=== PATIENT | male | born 1955 | race Caucasian/White ===

== ENCOUNTER 2020-09-23 22:20 | Observation (INO) | payer OTHER ==
[~2020-09-23] VITALS: Ht 185.4 cm; Wt 110.2 kg
[2020-09-23 23:03] LABS: BASO % 0 % (0-3); EOS # 0.2 x10^3/uL (0.0-0.7); EOS % 3 % (0-3); HEMATOCRIT 32.9 % (39.0-53.0); HEMOGLOBIN 11.6 g/dL (13.0-17.5); LYMPH # 0.5 x10^3/uL (1.0-4.8); LYMPH % 10 % (24-48); MEAN CORPUSCULAR HEMOGLOBIN 34 pg (25-35); MEAN CORPUSCULAR HGB CONC 35 g/dL (31-37); MEAN CORPUSCULAR VOLUME 96 fL (79-100); MONO # 0.6 x10^3/uL (0.0-1.1); MONO % 13 % (0-9); NEUT # 3.7 x10^3/uL (1.8-7.7); NEUT % 73 % (31-73); PLATELET COUNT 76 x10^3/uL (140-400); RED BLOOD COUNT 3.43 x10^6/uL (4.30-5.70)
[2020-09-23 23:16] LABS: CALCIUM 8.7 mg/dL (8.5-10.1); CREATININE 1.3 mg/dL (0.7-1.3); GFR 55.6; POTASSIUM 3.5 mmol/L (3.5-5.1)
[2020-09-23 23:22] LABS: TOTAL BILIRUBIN 0.3 mg/dL (0.2-1.0); TOTAL PROTEIN 6.1 g/dL (6.4-8.2)
--- NOTE | 2020-09-23 23:26 | RAD ---
INDICATION: Reason: chest pain / Spl. Instructions: / History: COMPARISON: None FINDINGS: Single view of chest obtained. Enlarged cardiomediastinal silhouette likely exaggerated by portable technique. Right-sided port with tip at the SVC. Limited assessment of the left lung base secondary to overlying structures obscuring . There are some linear opacities at the lower lungs. IMPRESSION: * Mild linear opacities at the lower lungs which could be from atelectasis but early infiltrate is a lso within the differential. Electronically signed by: Rm Sullivan MD (09/23/2020 11:23 PM) [id number]
--- NOTE | 2020-09-23 23:43 | PHYS DOC ---
Past Medical History Past Medical History: Cancer, High Cholesterol, Hypothyroid Additional Past Medical Histor: AORTIC ANEURYSM, RECTAL CA, A. FLUTTER Past Surgical History: Other Additional Past Surgical Histo: PORT R. CHEST, BACK, NECK Smoking Status: Current Every Day Smoker Alcohol Use: None General Adult EDM: Chief Complaint: CHEST PAIN HPI: HPI: Patient is a 64 year old male who presented to ER for evaluation of substernal chest pain associated with trouble breathing started a few hours ago. Patient has rectal cancer, he is currently under chemo radiation treatment at [facility]. Patient denies any cough or fever. Patient also has trouble breathing earlier. Patient had chronic cough, he was tested negative for COVID- 19 2 weeks ago. Patient was diagnosed recently with atrial fibrillation, he is on Eliquis and metoprolol. Review of Systems: Review of Systems: Constitutional: Denies fever or chills. [] Eyes: Denies change in visual acuity. [] HENT: Denies nasal congestion or sore throat. [] Respiratory: POSTIVE FOR cough, positive for shortness of air. [] Cardiovascular: Positive for chest pain, no edema GI: Denies abdominal pain, nausea, vomiting, bloody stools or diarrhea. [] : Denies dysuria. [] Musculoskeletal: Denies back pain or joint pain. [] Integument: Denies rash. [] Neurologic: Denies headache, focal weakness or sensory changes. [] Endocrine: Denies polyuria or polydipsia. [] Lymphatic: Denies swollen glands. [] Psychiatric: Denies depression or anxiety. [] Heart Score: HEART Score for Chest Pain: HEART Score for Chest Pain Response (Comments) Value History Moderately Suspicious 1 ECG Nonspecific Repolarizatio 1 Age >45 - < 65 1 Risk Factors 1 or 2 Risk Factors 1 Troponin < Normal Limit 0 Total 4 Risk Factors: Risk Factors: DM, Current or recent (<one month) smoker, HTN, HLP, family history of CAD, obesity. Risk Scores: Score 0 - 3: 2.5% MACE over next 6 weeks - Discharge Home Score 4 - 6: 20.3% MACE over next 6 weeks - Admit for Clinical Observation Score 7 - 10: 72.7% MACE over next 6 weeks - Early Invasive Strategies Current Medications: Current Medications Medications (Trade) Dose Ordered Sig/Lilliam Start Time Stop Time Status Last Admin Dose Admin Iohexol (Omnipaque 350 Mg/ml) 90 ml 1X ONCE 09/23/20 23:45 09/23/20 23:46 UNV Allergies: Allergies: Allergies Coded Allergies Type Severity Reaction Last Updated Verified No Known Drug Allergies 09/23/20 No Physical Exam: PE: Constitutional: Well developed, well nourished, no acute distress, non-toxic appearance. [] HENT: Normocephalic, atraumatic, bilateral external ears normal, oropharynx mo ist, no oral exudates, nose normal. [] Eyes: PERRLA, EOMI, conjunctiva normal, no discharge. [] Neck: Normal range of motion, no tenderness, supple, no stridor. [] Cardiovascular:Heart rate regular rhythm, no murmur [] Lungs & Thorax: Bilateral breath sounds clear to auscultation [] Abdomen: Bowel sounds normal, soft, no tenderness, no masses, no pulsatile masses. [] Skin: Warm, dry, no erythema, no rash. [] Back: No tenderness, no CVA tenderness. [] Extremities: No tenderness, no cyanosis, no clubbing, ROM intact, no edema. [] Neurologic: Alert and oriented X 3, normal motor function, normal sensory function, no focal deficits noted. [] Psychologic: Affect normal, judgement normal, mood normal. [] Current Patient Data: Labs: Laboratory Tests Test 09/23/20 22:50 White Blood Count 5.0 x10^3/uL (4.0-11.0) Red Blood Count 3.43 x10^6/uL (4.30-5.70) L Hemoglobin 11.6 g/dL (13.0-17.5) L Hematocrit 32.9 % (39.0-53.0) L Mean Corpuscular Volume 96 fL (79-100) Mean Corpuscular Hemoglobin 34 pg (25-35) Mean Corpuscular Hemoglobin Concent 35 g/dL (31-37) Red Cell Distribution Width 13.0 % (11.5-14.5) Platelet Count 76 x10^3/uL (140-400) L Neutrophils (%) (Auto) 73 % (31-73) Lymphocytes (%) (Auto) 10 % (24-48) L Monocytes (%) (Auto) 13 % (0-9) H Eosinophils (%) (Auto) 3 % (0-3) Basophils (%) (Auto) 0 % (0-3) Neutrophils # (Auto) 3.7 x10^3/uL (1.8-7.7) Lymphocytes # (Auto) 0.5 x10^3/uL (1.0-4.8) L Monocytes # (Auto) 0.6 x10^3/uL (0.0-1.1) Eosinophils # (Auto) 0.2 x10^3/uL (0.0-0.7) Basophils # (Auto) 0.0 x10^3/uL (0.0-0.2) Sodium Level 137 mmol/L (136-145) Potassium Level 3.5 mmol/L (3.5-5.1) Chloride Level 102 mmol/L (98-107) Carbon Dioxide Level 27 mmol/L (21-32) Anion Gap 8 (6-14) Blood Urea Nitrogen 13 mg/dL (8-26) Creatinine 1.3 mg/dL (0.7-1.3) Estimated GFR (Cockcroft-Gault) 55.6 BUN/Creatinine Ratio 10 (6-20) Glucose Level 132 mg/dL (70-99) H Calcium Level 8.7 mg/dL (8.5-10.1) Total Bilirubin 0.3 mg/dL (0.2-1.0) Aspartate Amino Transferase (AST) 14 U/L (15-37) L Alanine Aminotransferase (ALT) 16 U/L (16-63) Alkaline Phosphatase 95 U/L (46-116) Troponin I Quantitative 0.022 ng/mL (0.000-0.055) RN-Hpg-S-Type Natriuretic Peptide 919 pg/mL (0-124) H Total Protein 6.1 g/dL (6.4-8.2) L Albumin 3.0 g/dL (3.4-5.0) L Albumin/Globulin Ratio 1.0 (1.0-1.7) Lipase 28 U/L (73-393) L Laboratory Tests 09/23/20 22:50 Laboratory Tests 09/23/20 22:50 Vital Signs: Vital Signs Date Time Temp Pulse Resp B/P (MAP) Pulse Ox O2 Delivery O2 Flow Rate FiO2 09/23/20 23:03 98.7 59 20 139/72 (94) 99 Room Air 98.7 EKG: EKG: EKG was done at 2232, heart rate 138 bpm, atrial fibrillation with RVR, no ST segment elevation Radiology/Procedures: Radiology/Procedures: [facility] [address] [place] [address] IMAGING REPORT Signed PATIENT: NAVIN NAILS ACCOUNT: [id number] : 1955 LOCATION: ER AGE: 64 SEX: M EXAM STATUS: REG ER ORD. PHYSICIAN: MIGUEL NELSON DO REASON: CHEST PAIN, SHORTNESS OF AIR, RECTAL CANCER PROCEDURE: CT ANGIOGRAPHY CHEST INDICATION: Reason: CHEST PAIN, SHORTNESS OF AIR, RECTAL CANCER / Spl. Instructions: [id number] 90ML / History: COMPARISON: August 22, 2020 PET/CT TECHNIQUE: Axial CT images obtained through the chest. Intravenous contrast utilized. Angiogram 3D images processed per protocol. One or more of the following individualized dose reduction techniques were utilized for this examination: 1. Automated exposure control; 2. Adjustment of the mA and/or kV according to patient size; 3. Use of iterative reconstruction technique. FINDINGS: Cystic changes at lung apices. Trace pleural effusion. Mild peripheral reticulation which is likely chronic in nature. Mild probable basilar atelectasis. Enlarged lymph nodes in mediastinum. For example subcarinal region measuring up to 15 mm short axis. Right-sided port is seen. Degenerative changes the spine. Epidural leads was then central canal. No thoracic aortic aneurysm. Coronary artery calcific atherosclerosis. No central pulmonary embolus. Hilar lymphadenopathy. IMPRESSION: No central pulmonary embolus. There is some prominent lymph nodes within the mediastinum and hilum again seen. Trace bilateral pleural effusions with mild adjacent airspace consolidation. There is also some mild interstitial thickening at the lung bases which could be from mild pulmonary vascular congestion or interstitial infiltrate. Electronically signed by: Morelia Berger MD (09/24/2020 12:38 AM) DESKTOP- [id number] DICTATED and SIGNED BY: MORELIA BERGER MD DATE: 09/24/20 [id number] 0 Course & Med Decision Making: Course & Med Decision Making Pertinent Labs and Imaging studies reviewed. (See chart for details) Patient is a 64-year-old male who presented with chest pain and trouble breathing, CT scan did not show evidence of PE. Patient said the pain disappeared, cardiac enzymes normal so far. Patient will be admitted to hospital for further evaluation and treatment Dragon Disclaimer: Dragon Disclaimer: This electronic medical record was generated, in whole or in part, using a voice recognition dictation system. Departure Departure Impression: Primary Impression: Chest pain Disposition: ADMITTED INPT THIS HOSP Admitting Physician: RILEY (DR. COLLAZO) Condition: STABLE Referrals: NO PCP (PCP) MIGUEL NELSON DO Sep 23, 2020 23:43
[2020-09-23] MEDS ORDERED: CONTRAST GIVEN. MC PRN (23:45)
[2020-09-23] MEDS ORDERED: IOHEXOL 350 MG/ML 100 ML VIAL. IV ONE (23:45)
[2020-09-24] MEDS ORDERED: IV NORMAL SALINE 1000ML BAG 1,000 ML IV ONE
--- NOTE | 2020-09-24 00:40 | RAD ---
INDICATION: Reason: CHEST PAIN, SHORTNESS OF AIR, RECTAL CANCER / Spl. Instructions: [id number] 90ML / History: COMPARISON: August 22, 2020 PET/CT TECHNIQUE: Axial CT images obtained through the chest. Intravenous contrast utilized. Angiogram 3D images proce ssed per protocol. One or more of the following individualized dose reduction techniques were utilized for this examinat ion: 1. Automated exposure control; 2. Adjustment of the mA and/or kV according to patient size; 3 . Use of iterative reconstruction technique. FINDINGS: Cystic changes at lung apices. Trace pleural effusion. Mild peripheral reticulation which is likely chronic in nature. Mild probable basilar atelectasis. Enlarged lymph nodes in mediastinum. For example subcarinal region measuring up to 15 mm short axis. Right-sided port is seen. Degenerative changes the spine. Epidural leads was then central canal. No thoracic aortic aneurysm. Coronary artery calcific atherosc lerosis. No central pulmonary embolus. Hilar lymphadenopathy. IMPRESSION: No central pulmonary embolus. There is some prominent lymph nodes within the mediastinum and hilum again seen. Trace bilateral pleural effusions with mild adjacent airspace consolidation. There is also some mild interstitial thickening at the lung bases which could be from mild pulmonary vascular congestion or i nterstitial infiltrate. Electronically signed by: Rm Sullivan MD (09/24/2020 12:38 AM) [id number]
[2020-09-24] MEDS ORDERED: ONDANSETRON PF 4 MG/2 ML VIAL. IV PRN (01:15)
--- NOTE | 2020-09-24 08:05 | EKG ---
[facility] [address] [place] [address] Test Date: 2020-09-23 Test Time: 22:32:20 Pat Name: NAVIN NAILS Department: Room: Gender: M Nurse Prn: : 1955 Requested By: MIGUEL NELSON Order Number: [id number] Reading MD: Measurements Intervals [place] Rate: 128 P: ND: QRS: 25 QRSD: 70 T: -11 QT: 298 QTc: 438 Interpretive Statements IRREGULAR RHYTHM, NO P-WAVE FOUND LOW VOLTAGE T ABNORMALITY IN ANTERIOR LEADS INFEROLATERAL LEADS ABNORMAL ECG RI6.01 No previous ECG available for comparison
[2020-09-24] MEDS ORDERED: LEVO137T44 PO (08:34)
[2020-09-24] MEDS ORDERED: TAMS0.4C97 PO (08:37)
[2020-09-24] MEDS ORDERED: SIMV40TA18 PO (08:38)
--- NOTE | 2020-09-24 08:39 | HP ---
ADMIT DATE: 09/24/2020 CHIEF COMPLAINT: Chest pain. HISTORY OF PRESENT ILLNESS: The patient is a pleasant middle-aged male who has anal cancer. He is currently undergoing a radiation and chemo, now he has chest pain. He does have a history of aortic aneurysm. He has hyperlipidemia. I discussed the case with ER physician. We are going to admit the patient and consult Cardiology. PAST MEDICAL HISTORY: Tobacco abuse, aortic aneurysm, rectal cancer, chemotherapy, radiation therapy, A flutter, hyperlipidemia, hypothyroid, back surgery, neck surgery, right chest port. ALLERGIES: None. FAMILY HISTORY: Hypertension. SOCIAL HISTORY: He smokes. No drink or drugs. He is . His is present. She seems to be good support for him. MEDICATIONS: Reviewed, please refer to the MRAD. REVIEW OF SYSTEMS: GENERAL: No history of weight change, weakness or fevers. SKIN: No bruising, hair changes or rashes. EYES: No blurred, double or loss of vision. NOSE AND THROAT: No history of nosebleeds, hoarseness or sore throat. CARDIAC: He complains of chest pain. LUNGS: Denies cough, hemoptysis, wheezing or shortness of breath. GASTROINTESTINAL: Denies changes in appetite, nausea, vomiting, diarrhea or constipation. GENITOURINARY: No history of frequency, urgency, hesitancy or nocturia. NEUROLOGIC: Denies history of numbness, tingling, tremor or weakness. PSYCHIATRIC: No history of panic, anxiety or depression. ENDOCRINE: No history of heat or cold intolerance, polyuria or polydipsia. EXTREMITIES: Denies muscle weakness, joint pain, pain on walking or stiffness. PHYSICAL EXAMINATION: VITALS: Within normal limits and are stable. GENERAL: No apparent distress. Alert and oriented. HEENT: Normal cephalic atraumatic, external auditory canals are patent EYES: Extraocular muscles are intact, pupils are equally round and reactive to light and accommodation MUSCULOSKELETAL: Well developed, well nourished, good range of motion ENDOCRINE: No thyromegaly was palpated LYMPHATICS: No cervical chain or axillary nodes were noted HEMATOPOIETIC: No bruising NECK: Supple, no JVD, no thyromegaly was noted. LUNGS: Clear to auscultation in all lung jean baptiste without rhonchi or wheezing. HEART: RRR, S1, S2 present. Peripheral pulses intact, no obvious murmurs were noted. ABDOMEN: Soft, nontender. Positive bowel sounds no organomegaly, normal bowel sounds. EXTREMITIES: Without any cyanosis, clubbing, or edema. Pedal pulses intact, Homans sign is negative. NEUROLOGIC: Normal speech, normal tone. A and O x 3, moves all extremities, no obvious focal deficits. PSYCHIATRIC: Normal affect, normal mood. Stable. SKIN: No ulcerations or rashes, good skin turgor, no jaundice. VASCULAR: Good capillary refill, neurovascular bundle appears to be intact. ASSESSMENT AND PLAN: Chest pain, rule out coronary artery disease. The patient will be admitted. We will check serial enzymes, serial EKGs. Consult Cardiology. Home meds, deep venous thrombosis prophylaxis. Full code. Rule out coronavirus. CAMILO COLLAZO DO DR: NAHUM/marisela JOB#: [id number] / [id number]
[2020-09-24] MEDS ORDERED: APIX5TAB PO (08:44)
[2020-09-24] MEDS ORDERED: METO50TA6 PO (08:45)
[2020-09-24] MEDS ORDERED: OXYC20TA34 PO (08:46)
[2020-09-24] MEDS ORDERED: OXYC20TA PO (08:48)
[2020-09-24] MEDS ORDERED: PROC10TA57 PO (08:49)
[2020-09-24] MEDS ORDERED: CAPE500T PO (08:52)
[2020-09-24] MEDS ORDERED: PHEN95TA27 PO (08:53)
--- NOTE | 2020-09-24 09:47 | PDOC2 ---
ROSMERY JAMES ZINC CHLORIDE OPERATOR 09/24/20 0947: CARDIAC CONSULT DATE OF CONSULT Date of Consult DATE: 09/24/20 TIME: 09:41 REASON FOR CONSULT Reason for Consult: Chest pain REFERRING PHYSICIAN Referring Physician: Dr. Saucedo SOURCE Source: Chart review, Patient HISTORY OF PRESENT ILLNESS HISTORY OF PRESENT ILLNESS This is a 64 yo male, with a history of rectal cancer currently undergoing chemo and radiation treatment at [facility] and AFIB, who presented secondary to chest pain and shortness of breath. Patient reports tightness in his central chest. Feels difficult to breath. Has difficulty taking a deep breath. Tightness is non-radiating. No dizziness, diaphoresis, palpitations, or nausea/vomiting. Does have some mild LE edema. Rectal CA is recently diagnosed. Is on week 3 of chemo, radiation therapy. Was diagnosed with AFIB last week. Saw Dr. Mendoza who initiated him on metoprolol on Elquis. Had echocardiogram conducted in his office, which the patient reports as "normal". No recent stress test. PAST MEDICAL HISTORY Cardiovascular: AFIB, HTN, Hyperlipidemia GI: Other (rectal cancer, currently undergoing chemo/radiation treatment ) Endocrine: Hypothyroidism PAST SURGICAL HISTORY Past Surgical History: No pertinent history FAMILY HISTORY Family History: Hypertension SOCIAL HISTORY Smoke: No ALCOHOL: none Drugs: None Lives: with Family CURRENT MEDICATIONS CURRENT MEDICATIONS Current Medications Medications (Trade) Dose Ordered Sig/Lilliam Route PRN Reason Start Time Stop Time Status Last Admin Dose Admin Iohexol (Omnipaque 350 Mg/ml) 90 ml 1X ONCE IV 09/23/20 23:45 09/23/20 23:47 DC 09/23/20 23:55 Sodium Chloride 1,000 ml @ 1,000 mls/hr 1X ONCE IV 09/24/20 00:00 09/24/20 00:59 DC 09/24/20 00:13 ALLERGIES ALLERGIES: Coded Allergies: No Known Drug Allergies (Unverified , 09/23/20) ROS Review of System 14 point ROS conducted with pertinent positives noted above in HPI PHYSICAL EXAM General: Alert, Oriented X3, Cooperative, No acute distress HEENT: Atraumatic Lungs: Other (diminished ) Heart: Regular rate Abdomen: Soft, No tenderness Extremities: Other (trace bilateral LE edema ) Skin: No significant lesion Neuro: Normal speech, Sensation intact, Cranial nerves 3-12 NL Psych/Mental Status: Mental status NL, Mood NL MUSCULOSKELETAL: Osteoarthritic changes both hands VITALS/I&O VITALS/I&O: Vital Signs Date Time Temp Pulse Resp B/P (MAP) Pulse Ox O2 Delivery O2 Flow Rate FiO2 09/24/20 05:48 54 18 125/67 (86) 96 Room Air 09/23/20 23:03 98.7 98.7 LABS Lab: Laboratory Tests Test 09/23/20 22:50 09/24/20 02:30 09/24/20 05:27 White Blood Count 5.0 x10^3/uL (4.0-11.0) Red Blood Count 3.43 x10^6/uL (4.30-5.70) L Hemoglobin 11.6 g/dL (13.0-17.5) L Hematocrit 32.9 % (39.0-53.0) L Mean Corpuscular Volume 96 fL (79-100) Mean Corpuscular Hemoglobin 34 pg (25-35) Mean Corpuscular Hemoglobin Concent 35 g/dL (31-37) Red Cell Distribution Width 13.0 % (11.5-14.5) Platelet Count 76 x10^3/uL (140-400) L Neutrophils (%) (Auto) 73 % (31-73) Lymphocytes (%) (Auto) 10 % (24-48) L Monocytes (%) (Auto) 13 % (0-9) H Eosinophils (%) (Auto) 3 % (0-3) Basophils (%) (Auto) 0 % (0-3) Neutrophils # (Auto) 3.7 x10^3/uL (1.8-7.7) Lymphocytes # (Auto) 0.5 x10^3/uL (1.0-4.8) L Monocytes # (Auto) 0.6 x10^3/uL (0.0-1.1) Eosinophils # (Auto) 0.2 x10^3/uL (0.0-0.7) Basophils # (Auto) 0.0 x10^3/uL (0.0-0.2) Sodium Level 137 mmol/L (136-145) Potassium Level 3.5 mmol/L (3.5-5.1) Chloride Level 102 mmol/L (98-107) Carbon Dioxide Level 27 mmol/L (21-32) Anion Gap 8 (6-14) Blood Urea Nitrogen 13 mg/dL (8-26) Creatinine 1.3 mg/dL (0.7-1.3) Estimated GFR (Cockcroft-Gault) 55.6 BUN/Creatinine Ratio 10 (6-20) Glucose Level 132 mg/dL (70-99) H Calcium Level 8.7 mg/dL (8.5-10.1) Total Bilirubin 0.3 mg/dL (0.2-1.0) Aspartate Amino Transferase (AST) 14 U/L (15-37) L Alanine Aminotransferase (ALT) 16 U/L (16-63) Alkaline Phosphatase 95 U/L (46-116) Troponin I Quantitative 0.022 ng/mL (0.000-0.055) 0.022 ng/mL (0.000-0.055) < 0.017 ng/mL (0.000-0.055) YP-Qbn-U-Type Natriuretic Peptide 919 pg/mL (0-124) H Total Protein 6.1 g/dL (6.4-8.2) L Albumin 3.0 g/dL (3.4-5.0) L Albumin/Globulin Ratio 1.0 (1.0-1.7) Lipase 28 U/L (73-393) L Laboratory Tests 09/23/20 22:50 Laboratory Tests 09/23/20 22:50 ASSESSMENT/PLAN ASSESSMENT/PLAN 1. Chest pain, atypical; AMI ruled out. 2. Acute diastolic CHF; reports recent echo that was "normal" 3. PAFIB; presently SR. . Recently began following with Dr. Mendoza 4. Rectal CA; started on chemo/radiation 3 wks ago 5. Hyperlipidemia 6. Hypertension controlled 7. Hypothyroidism; on replacement Recommendations ASA, statin Lipids IV diuresis with monitoring of labs Metoprolol for rate control On Eliquis for stroke prophylaxis Outpatient ischemic evaluation Consider COVID r/o LUIS EATON MD 09/25/20 0355: CARDIAC CONSULT ASSESSMENT/PLAN ASSESSMENT/PLAN Late entry for 09/24/2020 PT. seen and examined. Agree with above SCOURING TRAIN OPERATOR note. Mr. Castle presents with worsening exertional dyspnea now requiring supplemental O2. Therefore, a rapid covid was sent and this was negative. Clinically he does not appear to be in overt heart failure (only trace LE edema) He has not had any high BP or RVR since admission and he has not had significant urine output with lasix either so this does not appear to be related to these un derlying issues. His CT scan is negative for p.e. Etiology of dyspnea is a bit unclear but we will await records from his molding machine setter for his most recent echo. ROSMERY JAMES APRN Sep 24, 2020 09:47 LUIS EATON MD Sep 25, 2020 03:55
[2020-09-24] MEDS: LEVOTHYROXINE 137 MCG TABLET PO SCH (10:50)
[2020-09-24] MEDS: APIXABAN 5 MG TABLET. PO SCH ×2 (10:51→22:34)
[2020-09-24] MEDS: oxyCODONE ER 10 MG TAB.ER.12H PO SCH ×2 (10:51→22:35)
[2020-09-24] MEDS: TAMSULOSIN 0.4 MG CAP.ER.24H. PO SCH (10:51)
[2020-09-24] MEDS: METOPROLOL TART IMMED RELEASE 50 MG TABLET. PO SCH ×2 (10:51→22:34)
[2020-09-24] MEDS: PROCHLORPERAZINE 5 MG TABLET. PO PRN (11:05)
[2020-09-24] MEDS ORDERED: FUROSEMIDE 40 MG/4 ML VIAL. IVP ONE ×2 (11:45→15:45)
[2020-09-24] MEDS ORDERED: POTASSIUM CHLORIDE 20 MEQ TABLET.ER. PO ONE ×2 (12:30→15:45)
[2020-09-24 15:00] VITALS: BP 107/61
[2020-09-24] MEDS: oxyCODONE IR 5 MG TABLET PO PRN (16:25)
[2020-09-24] MEDS ORDERED: ZOLPIDEM 5 MG TABLET. PO PRN (17:30)
[2020-09-24 19:55] VITALS: BP 116/56
[2020-09-24] MEDS ORDERED: ATORVASTATIN CALCIUM 40 MG TABLET. PO SCH (21:00)
[2020-09-24 22:40] VITALS: BP 93/45
[2020-09-25] MEDS: oxyCODONE IR 5 MG TABLET PO PRN (00:28)
[2020-09-25 02:33] VITALS: BP 98/46
[2020-09-25] MEDS: LEVOTHYROXINE 137 MCG TABLET PO SCH (06:27)
[2020-09-25 07:00] VITALS: BP 106/62
[2020-09-25 07:14] LABS: CHOLESTEROL/HDL RATIO 2.3
[2020-09-25] MEDS ORDERED: ASPIRIN ENTERIC COATED 81 MG TABLET.DR. PO SCH (08:00)
[2020-09-25] MEDS: oxyCODONE ER 10 MG TAB.ER.12H PO SCH (08:40)
[2020-09-25] MEDS: PROCHLORPERAZINE 5 MG TABLET. PO PRN (08:40)
[2020-09-25] MEDS: APIXABAN 5 MG TABLET. PO SCH (08:40)
[2020-09-25] MEDS: TAMSULOSIN 0.4 MG CAP.ER.24H. PO SCH (08:40)
[2020-09-25] MEDS: METOPROLOL TART IMMED RELEASE 50 MG TABLET. PO SCH (08:41)
[2020-09-25 10:48] VITALS: BP 110/58
--- NOTE | 2020-09-25 11:10 | PDOC ---
ROSMERY JAMES FINGER LIFT OPERATOR 09/25/20 1110: CARDIO Progress Notes Date and Time Date of Service 09/25/20 Time of Evaluation 1100 Subjective Subjective: No Chest Pain, No Palpitations, No Dizziness, Other (SOA improved, but remians slightly dyspneic ) Vitals Vitals Vital Signs Date Time Temp Pulse Resp B/P (MAP) Pulse Ox O2 Delivery O2 Flow Rate FiO2 09/25/20 10:48 98.1 59 20 110/58 (75) 97 Nasal Cannula 2.0 98.1 Weight Weight [ ] Input and Output Intake and Output Intake and Output 09/25/20 07:00 Intake Total 530 ml Output Total 1000 ml Balance -470 ml Intake Oral 530 ml Output Urine Total 1000 ml # Voids 1 Laboratory Labs Laboratory Tests Test 09/24/20 19:00 09/25/20 06:15 SARS-CoV-2 Antigen (Rapid) Negative (NEGATIVE) Triglycerides Level 139 mg/dL (0-150) Cholesterol Level 155 mg/dL (0-200) LDL Cholesterol, Calculated 59 mg/dL (0-100) VLDL Cholesterol, Calculated 28 mg/dL (0-40) Non-HDL Cholesterol Calculated 87 mg/dL (0-129) HDL Cholesterol 68 mg/dL (40-60) Cholesterol/HDL Ratio 2.3 Physical Exam HEENT: Neck Supple W Full Motion Chest: Symmetric LUNGS: Other (diminished bases) Heart: RRR Abdomen: Soft N/T Extremities: No Edema Neurology: alert, oriented, follow commands Assessment Assessment 1. Chest pain, atypical; AMI ruled out. 2. Mild acute diastolic CHF; reports recent echo that was "normal". Dyspnea improved with diuresis 3. PAFIB; presently SR. . Recently began following with Dr. Mendoza 4. Rectal CA; started on chemo/radiation 3 wks ago 5. Hyperlipidemia 6. Hypertension controlled 7. Hypothyroidism; on replacement 8. PUI; Rapid negative, PCR pending 9. Tobaccoism; discussed/encouraged cessation Recommendations ASA, statin Obtain recent echo from Dr. Mendoza Metoprolol for rate control On Eliquis for stroke prophylaxis Outpatient ischemic evaluation Supportive care Justicifation of Admission Dx: Justifications for Admission: Justification of Admission Dx: Yes Comments: acute CHF LUIS EATON MD 09/26/20 0848: CARDIO Progress Notes Plan Plan Late entry for 09/25/2020 Patient seen and examined. He reports improved symptoms. Agree with above nurse practitioner note. Supportive care. Okay to follow-up with his primary hides and skins colorer. No further cardiac testing necessary. ROSMERY JAMES APRN Sep 25, 2020 11:10 LUIS EATON MD Sep 26, 2020 08:48
--- NOTE | 2020-09-25 11:39 | NUR ---
SS following for discharge planning. SS reviewed pt chart and discussed with pt RN. Pt is from home with spouse and is currently on room air. COVID19 negative on rapid. Cardiology following. Discharge plan is to home when medically ready. SS will continue to follow for discharge planning.
--- NOTE | 2020-09-25 12:23 | DISCH ---
DISCHARGE INSTRUCTIONS Condition on Discharge Condition on Discharge: Guarded Activity After Discharge Activity Instructions for Disc: Activity as tolerated Diet after Discharge Diet after Discharge: Cardiac Contacting the DRTeodoro after DC Call your doctor for: If your condition worsens Follow-Up Follow up with: PCP within 2 weeks of discharge Follow Up With: Cardiology as needed, MANJINDER Gleason MD Sep 25, 2020 12:23
[2020-09-25] MEDS ORDERED: POTASSIUM CHLORIDE 20 MEQ TABLET.ER. PO ONE (13:00)
[2020-09-25] MEDS ORDERED: FUROSEMIDE 40 MG/4 ML VIAL. IVP ONE (13:00)
[2020-09-25] MEDS ORDERED: HEPARIN PF 500 UNIT/5 ML DISP.SYRIN. IVP ONE (14:30)
[2020-09-25 15:00] VITALS: BP 103/58
[2020-09-25] MEDS ORDERED: ANTI-COAG MONITOR BY PHARMACY. MC PRN (16:30)
--- NOTE | 2020-09-25 18:00 | NUR ---
Discharge Note: NATALIE NAILS Discharge instructions and discharge home medications reviewed with Patient and and a copy given. All questions have been answered and understanding verbalized. The following instructions and handouts were given: information about medications, follow up appointments, chest pain, etc. Discontinued lines and drains: port-a-cath in right chest de-accessed. Patient discharged to home with self care with , patient ambulated to discharge vehicle.
--- NOTE | 2020-09-28 22:02 | PDOC3 ---
[facility]-Discharge Summary Date of Admission: Date of Admission: Sep 24, 2020 Date of Discharge: Date of Discharge: Sep 25, 2020 Discharge Diagnosis: Discharge Diagnosis: 1. Chest pain, atypical; AMI ruled out. 2. Acute diastolic CHF; reports recent echo that was "normal" 3. PAFIB; presently SR. . Recently began following with Dr. Mendoza 4. Rectal CA; started on chemo/radiation 3 wks ago 5. Hyperlipidemia 6. Hypertension controlled 7. Hypothyroidism; on replacement Hospital Course: Hospital Course: The patient is a pleasant middle-aged male who has anal cancer. He is currently undergoing a radiation and chemo, now he has chest pain. He does have a history of aortic aneurysm. He has hyperlipidemia. I discussed the case with ER physician. We are going to admit the patient and consult Cardiology. Echo was reviewed and all his risk factors for chest pain was reviewed with him. There are no obvious reasons for his chest pain or his LE edema. He was chest pain free on the day of his discharge. Rest of hospital course was uneventful. Disposition: Disposition/Orders: D/C to Home Activity: Activity: Resume previous activity Diet: Diet: Cardiac Medications: Home Meds Reported Medications Phenazopyridine Hcl (AZO STANDARD) 95 Mg Tablet, 1 TAB PO BID for 3 Days, #6 TAB 0 Refills 09/24/20 Capecitabine (XELODA) 500 Mg Tablet, 2000 MG PO BID, TAB 09/24/20 Prochlorperazine Maleate (Compazine) 10 Mg Tablet, 1 TAB PO Q4-6HRS PRN for NAUSEA for 30 Days, TAB 0 Refills 09/24/20 Oxycodone Hcl (OXYCODONE HCL) 20 Mg Tablet, 0.5 TAB PO QIDPRN PRN for pain MDD 4 Tablet(s) for 5 Days, #20 TAB 0 Refills 09/24/20 Oxycodone Hcl (OXYCONTIN) 20 Mg Tab.er.12h, 1 TAB PO BID for pain MDD 2 Tablet(s) for 30 Days, #60 TAB 0 Refills 09/24/20 Metoprolol Tartrate (METOPROLOL TARTRATE) 50 Mg Tablet, 1 TAB PO BID, #60 TAB 5 Refills 20 Apixaban (ELIQUIS) 5 Mg Tablet, 5 MG PO BID, TAB 20 Simvastatin (SIMVASTATIN) 40 Mg Tablet, 1 TAB PO QHS, #30 TAB 5 Refills 09/24/20 Tamsulosin Hcl (FLOMAX) 0.4 Mg Cap.er.24h, 1 CAP PO DAILY, #30 CAP 11 Refills 09/24/20 Levothyroxine Sodium (SYNTHROID) 137 Mcg Tablet, 1 TAB PO DAILY, #30 TAB 5 Refills 09/24/20 Scheduled Apixaban (Eliquis), 5 MG PO BID, (Reported) Capecitabine (Xeloda), 2,000 MG PO BID, (Reported) Levothyroxine Sodium (Synthroid), 1 TAB PO DAILY, (Reported) Metoprolol Tartrate (Metoprolol Tartrate), 1 TAB PO BID, (Reported) Oxycodone Hcl (Oxycontin), 1 TAB PO BID, (Reported) Phenazopyridine Hcl (Azo Standard), 1 TAB PO BID, (Reported) Simvastatin (Simvastatin), 1 TAB PO QHS, (Reported) Tamsulosin Hcl (Flomax), 1 CAP PO DAILY, (Reported) Scheduled PRN Oxycodone Hcl (Oxycodone Hcl), 0.5 TAB PO QIDPRN PRN for pain, (Reported) Prochlorperazine Maleate (Compazine), 1 TAB PO Q4-6HRS PRN for NAUSEA, (Reported) Total Time: Total Time: Total time spent was 25 minutes in preparing scripts, discharge planning with SW and RN, and preparing this discharge summary. Patient seen and examined on day of discharge. Justicifation of Admission Dx: Justifications for Admission: Justification of Admission Dx: Yes MANJINDER ROSE MD Sep 28, 2020 22:02
== END 2020-09-25 18:00 | disposition home or self-care (01) ==
LOC: ER 22:20 → ED HOLD 09-24 01:10 → 2 NORTH 09-24 14:19
PROVIDERS: ADMIT Internal Medicine; ATTEND Internal Medicine
DX: R07.89 Other chest pain (principal); Z20.828 Contact with and (suspected) exposure to other viral communicable diseases; C21.8 Malignant neoplasm of overlapping sites of rectum, anus and anal canal; I11.0 Hypertensive heart disease with heart failure; I50.31 Acute diastolic (congestive) heart failure; I48.0 Paroxysmal atrial fibrillation; I71.4 Abdominal aortic aneurysm, without rupture; E78.5 Hyperlipidemia, unspecified; E03.9 Hypothyroidism, unspecified; E78.00 Pure hypercholesterolemia, unspecified; F17.200 Nicotine dependence, unspecified, uncomplicated; Z86.79 Personal history of other diseases of the circulatory system; Z98.890 Other specified postprocedural states; Z85.048 Personal history of other malignant neoplasm of rectum, rectosigmoid junction, and anus; Z79.01 Long term (current) use of anticoagulants
CPT/HCPCS: 36415; 71045; 71275; 80053; 80061; 83690; 83880; 84484; 85025; 87426; 93005; 96361; 96374; 96375; 96376; 99285; G0378; J1642; J1940; J7030; Q0164; Q9967; U0003; G0379